=== PATIENT | female | born 1990 | race Caucasian/White ===

== ENCOUNTER 2017-09-18 10:38 | Emergency (ER) | payer OTHER ==
[2017-09-18] MEDS ORDERED: ONDANSETRON 4 MG/2 ML VIAL ONE (12:26)
[2017-09-18 12:31] LABS: Absolute Lymphocytes (CBC) 1.7 K/uL (0.7-4.9); Absolute Monocytes 0.6 K/uL (0.1-1.3); Absolute Neutrophil 5.1 K/uL (1.8-8.0); Basophils % 0.4 % (0-1.3); Eosinophils % 2.9 % (0-4.4); Hematocrit 40.5 % (36.0-45.0); Lymphocytes % 22.8 % (15.3-44.8); MPV 7.8 fL (7.6-11.3); Monocytes % 7.7 % (3.3-12.3)
[2017-09-18 12:41] LABS: Glomerular Filtration Rate > 60 mL/min (>60)
[2017-09-18 12:42] LABS: Bicarbonate 26 mEq/L (21-31); Glucose Level 88 mg/dL (65-120); Lipase 22 U/L (22-51); Potassium 3.7 mEq/L (3.6-5.0); Sodium Level 137 mEq/L (135-145)
[2017-09-18 12:49] LABS: ALT/SGPT 20 IU/L (10-60); AST/SGOT 22 IU/L (10-42); Albumin 4.6 g/dL (3.2-5.5); Alkaline Phosphatase 66 IU/L (42-121); BUN Blood Urea Nitrogen 16 mg/dL (6-20); Bilirubin Direct 0.1 mg/dL (0-0.2); Bilirubin Total 0.5 mg/dL (0.3-1.2); Glomerular Filtration Rate > 90 mL/min (=/>90); Protein, Total 7.8 g/dL (6.0-8.3)
--- NOTE | 2017-09-18 13:14 | ER ---
Nurse's Notes [facility] Name: Isi Maravilla Age: 27 yrs Sex: Female : 1990 Arrival Date: 09/18/2017 Time: 10:41 Bed 12 Private MD: Diagnosis: Vomiting;Viral gastroenteritis Presentation: 09/18 10:44 Presenting complaint: Patient states: "I woke up late for work and when I got there I lk1 started puking. I had to leave.". Transition of care: patient was not received from another setting of care. Onset of symptoms was September 18, 2017 at 10:00. Care prior to arrival: None. 10:44 Method Of Arrival: Ambulatory lk1 10:44 Acuity: JOEY 3 lk1 Triage Assessment: 10:46 General: Appears in no apparent distress. Behavior is calm, cooperative, appropriate lk1 for age. Pain: Denies pain. GI: Reports diarrhea, nausea, vomiting. 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 - Social history:: Smoking status: Patient uses tobacco products, smokes one-half pack cigarettes per day. - Family history:: not pertinent. - Hospitalizations: : No recent hospitalization is reported. Screenin:30 Abuse screen: Denies threats or abuse. Denies injuries from another. Nutritional aj1 screening: No deficits noted. Tuberculosis screening: No symptoms or risk factors identified. 13:40 Fall Risk None identified. iw Assessment: 12:30 General: Appears in no apparent distress. comfortable, Behavior is calm, cooperative, aj1 appropriate for age. Pain: Denies pain. Neuro: Level of Consciousness is awake, alert, obeys commands, Oriented to person, place, time, situation, Speech is normal, Facial symmetry appears normal. Cardiovascular: Patient's skin is warm and dry. Respiratory: Airway is patent Respiratory effort is even, unlabored, Respiratory pattern is regular, symmetrical. GI: Abdomen is flat, non-distended, Bowel sounds present X 4 quads. Abd is soft and non tender X 4 quads. Reports nausea, vomiting, Patient currently denies abdominal pain, diarrhea. : No signs and/or symptoms were reported regarding the genitourinary system. EENT: No signs and/or symptoms were reported regarding the EENT system. Derm: No signs and/or symptoms reported regarding the dermatologic system. Skin is pink, warm \\T\\ dry. normal. Musculoskeletal: No signs and/or symptoms reported regarding the musculoskeletal system. Circulation, motion, and sensation intact. 12:32 Reassessment: Patient is in room screaming "I hate hospitals, I want to leave!!!" aj1 Checked on patient, who says "I just don't want to be here, how much longer will this take?" Explained to patient that it typically takes 30 minutes to an hour to get lab results back and that results will affect whether further testing in indicated. Patient verbalized understanding, denies any further complaints. 13:00 Reassessment: Patient is standing outside door, asks how much longer until she is aj1 discharged. Instructed patient that labs may take up to an hour to complete and they were sent at around 12:30. Patient was asked if there was anything we could get her at this time, patient denies further needs walks back into her room and screams. Checked on patient who states "Sorry I'm just frustrated". Denies any further needs at this time. 13:10 Reassessment: Patient standing outside the door, states she wants to leave now. aj1 Notified Dr. Chicas who says he is ready to dc patient, notified pt that discharge paperwork is being completed and she will be discharged as soon as it is finished. Patient becomes irate, states "This is ridiculous, I've been here for over 4 hours and y'all haven't done anything!" Reviewed with patient care provider so far in her ER visit: labs, EKG, IV, medication, evaluation by physician. Patient remains agitated states "Well you don't have to keep me here, you could just call me with my results if you really wanted to. This is the slowest hospital I've ever been to. You should have gotten me out of here hours ago, you're just wasting my time" Reassured pt that will be discharging her in just a few minutes as soon as the physician finishes typing up discharge paperwork. Vital Signs: 10:46 BP 128 / 77; Pulse 80; Resp 14; Temp 98.2(TE); Pulse Ox 99% on R/A; Weight 74.84 kg lk1 (R); Height 5 ft. 5 in. (165.10 cm) (R); Pain 0/10; 10:46 Body Mass Index 27.46 (74.84 kg, 165.10 cm) lk1 ED Course: 10:41 Patient arrived in ED. rg4 10:45 Triage completed. lk1 10:48 Arm band placed on right wrist. lk1 11:46 Pablo Chicas MD is Attending Physician. rn 12:05 Coleen Charles, RN is Primary Nurse. aj1 12:30 Patient has correct armband on for positive identification. Call light in reach. aj1 12:30 No provider procedures requiring assistance completed. aj1 12:31 EKG done, by farm operations technical director. reviewed by Pablo Chicas MD. tc 13:40 IV discontinued, intact, bleeding controlled, No redness/swelling at site. Pressure iw dressing applied. Administered Medications: 12:29 Drug: Zofran 4 mg Route: IVP; Site: left antecubital; aj1 Outcome: 13:13 Discharge ordered by MD. rn 13:39 Discharged to home ambulatory. iw 13:39 Condition: good 13:39 Discharge instructions given to patient, Instructed on discharge instructions, follow up and referral plans. medication usage, Demonstrated understanding of instructions, follow-up care, medications, Prescriptions given X 1. 13:40 Patient left the ED. iw Signatures: Coleen Charles, CLAUDETTE RN aj1 Minoo Medley RN CLAUDETTE iw Pablo Chicas MD MD rn Callis, Tiffany, spotter driver EKG Taylor Sheth RN RN lk1 Francisca Thurston rg4 Corrections: (The following items were deleted from the chart) 13:24 13:00 Reassessment: Patient is standing outside door, asks how much longer until she is aj1 discharged. Instructed patient that labs may take up to an hour to complete and they were sent at around 12:30. Patient was asked if there was anything we could get her at this time, patient denies further needs walks back into her room and screams. Checked on patient who states "Sorry I'm just frustrated" aj1
--- NOTE | 2017-09-18 13:14 | EDPHYS ---
Physician Documentation [facility] Name: Isi Maravilla Age: 27 yrs Sex: Female : 1990 Arrival Date: 09/18/2017 Time: 10:41 Bed 12 Private MD: ED Physician Pablo Chicas HPI: 09/18 12:46 This 27 yrs old Female presents to ER via Ambulatory with complaints of rn Vomiting. 12:46 The patient presents to the emergency department with nausea, vomiting. Onset: The rn symptoms/episode began/occurred just prior to arrival. Possible causes: unknown. The symptoms are aggravated by nothing. The symptoms are alleviated by nothing. Severity of symptoms: At their worst the symptoms were mild in the emergency department the symptoms are unchanged. The patient has experienced similar episodes in the past. The patient has not recently seen a physician. Reports got to work, + threw up once, no blood, states diarrhea yesterday and today, no fever, not , no urinary symptoms. No abd pain/chest pain.. 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 - Social history:: Smoking status: Patient uses tobacco products, smokes one-half pack cigarettes per day. - Family history:: not pertinent. - Hospitalizations: : No recent hospitalization is reported. ROS: 12:46 Constitutional: Negative for fever, chills, and weight loss, Eyes: Negative for injury, rn pain, redness, and discharge, Neck: Negative for injury, pain, and swelling, Cardiovascular: Negative for chest pain, palpitations, and edema, Respiratory: Negative for shortness of breath, cough, wheezing, and pleuritic chest pain, Abdomen/GI: Negative for abdominal pain, constipation, MS/Extremity: Negative for injury and deformity, Skin: Negative for injury, rash, and discoloration, Neuro: Negative for headache, weakness, numbness, tingling, and seizure. Exam: 12:46 Constitutional: This is a well developed, well nourished patient who is awake, alert, rn and in no acute distress. Head/Face: Normocephalic, atraumatic. Eyes: Pupils equal round and reactive to light, extra-ocular motions intact. Lids and lashes normal. Conjunctiva and sclera are non-icteric and not injected. Cornea within normal limits. Periorbital areas with no swelling, redness, or edema. Cardiovascular: Regular rate and rhythm with a normal S1 and S2. No gallops, murmurs, or rubs. Normal PMI, no JVD. No pulse deficits. Respiratory: Lungs have equal breath sounds bilaterally, clear to auscultation and percussion. No rales, rhonchi or wheezes noted. No increased work of breathing, no retractions or nasal flaring. Abdomen/GI: Soft, non-tender, with normal bowel sounds. No distension or tympany. No guarding or rebound. No evidence of tenderness throughout. Back: No spinal tenderness. No costovertebral tenderness. Full range of motion. Skin: Warm, dry with normal turgor. Normal color with no rashes, no lesions, and no evidence of cellulitis. MS/ Extremity: Pulses equal, no cyanosis. Neurovascular intact. Full, normal range of motion. Equal circumference. Neuro: Awake and alert, GCS 15, oriented to person, place, time, and situation. Cranial nerves II-XII grossly intact. Motor strength 5/5 in all extremities. Sensory grossly intact. Cerebellar exam normal. Normal gait. Vital Signs: 10:46 BP 128 / 77; Pulse 80; Resp 14; Temp 98.2(TE); Pulse Ox 99% on R/A; Weight 74.84 kg lk1 (R); Height 5 ft. 5 in. (165.10 cm) (R); Pain 0/10; 10:46 Body Mass Index 27.46 (74.84 kg, 165.10 cm) lk1 MDM: 11:46 Patient medically screened. rn 13:12 Differential diagnosis: gastritis, viral gastroenteritis, gastroenteritis. Data rn reviewed: vital signs, nurses notes, lab test result(s), and as a result, I will discharge patient. Counseling: I had a detailed discussion with the patient and/or guardian regarding: the historical points, exam findings, and any diagnostic results supporting the discharge/admit diagnosis, lab results, the need for outpatient follow up, to return to the emergency department if symptoms worsen or persist or if there are any questions or concerns that arise at home. Special discussion: I discussed with the patient/guardian in detail that at this point there is no indication for admission to the hospital. It is understood, however, that if the symptoms persist or worsen the patient needs to return immediately for re-evaluation. ED course: Pt requesting to go home, states feels better, needs to leave, will dc home, UPT neg. . 09/18 11:47 Order name: Basic Metabolic Panel; Complete Time: 13:11 09/18 11:47 Order name: CBC with Diff; Complete Time: 13:11 rn 09/18 11:47 Order name: Creatinine for Radiology; Complete Time: 13:11 09/18 11:47 Order name: Hepatic Function; Complete Time: 13:11 09/18 11:47 Order name: Lipase; Complete Time: 13:11 09/18 11:47 Order name: Urine Microscopic Only 09/18 11:47 Order name: Urine Test (obtain specimen); Complete Time: 12:29 09/18 11:47 Order name: IV Saline Lock; Complete Time: 12:29 09/18 11:47 Order name: Labs collected and sent; Complete Time: 12:29 09/18 11:47 Order name: Urine Dipstick-Ancillary (obtain specimen); Complete Time: 12:30 rn 09/18 11:47 Order name: EKG; Complete Time: 11:48 09/18 12:35 Order name: Urine Dipstick--Ancillary (enter results) 09/18 12:35 Order name: Urine --Ancillary (enter results) 09/18 11:47 Order name: EKG - Nurse/Tech; Complete Time: 12:29 rn Administered Medications: 12:29 Drug: Zofran 4 mg Route: IVP; Site: left antecubital; aj1 Disposition: 09/18/17 13:13 Discharged to Home. Impression: Vomiting, Viral gastroenteritis. - Condition is Stable. - Discharge Instructions: Nausea and Vomiting, Viral Gastroenteritis, Viral Infections. - Prescriptions for Zofran ODT 4 mg Oral tablet,disintegrating - place 1 tablet by TRANSLINGUAL route every 8-10 hours As needed; 15 tablet. - Medication Reconciliation Form, Thank You Letter, Antibiotic Education, Prescription Opioid Use, Work release form form. - Follow up: Private Physician; When: As needed; Reason: Recheck today's complaints, Re-evaluation by your physician. - Problem is new. - Symptoms have improved. Signatures: Dispatcher [employer] Coleen Rosas RN RN aj1 Minoo Medley RN RN iw Nieto, Roman, MD MD rn Kluge, Leah, RN RN lk1
[2017-09-18 13:51] LABS: Urine Blood NEGATIVE (NEG); Urine Glucose NEGATIVE (NEG); Urine Protein NEGATIVE (NEG)
[2017-09-18 13:58] VITALS: BP 128/77; TEMP 98.2; O2SAT 99
[2017-09-18 13:58] LABS: Urine Amorphous Sediment 3+ /HPF (NONE SEEN); Urine Bacteria 20-50 /HPF (<20); Urine Culture Reflex Order REFLEXED; Urine RBC <5 /HPF (NONE SEEN)
--- NOTE | 2017-09-18 16:26 | EKG ---
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
== END 2017-09-18 13:40 | disposition home or self-care (01) ==
LOC: ER 10:38
DX: F17.210 Nicotine dependence, cigarettes, uncomplicated; A08.4 Viral intestinal infection, unspecified; Z88.0 Allergy status to penicillin
CPT/HCPCS: 36415; 80048; 80076; 81003; 81015; 81025; 83690; 85025; 87086; 87088; 93005; 96374; 99283; J2405

== ENCOUNTER 2018-01-12 21:55 | Emergency (ER) | payer OTHER ==
[2018-01-12 22:29] LABS: Urine Blood NEGATIVE (NEG); Urine Glucose NEGATIVE (NEG); Urine Protein 1+ (NEG); Urine Specific Gravity >1.030 (1.005-1.030)
[2018-01-12 23:05] LABS: Absolute Lymphocytes (CBC) 1.9 K/uL (0.7-4.9); Absolute Monocytes 0.5 K/uL (0.1-1.3); Absolute Neutrophil 3.6 K/uL (1.8-8.0); Basophils % 0.4 % (0-1.3); Eosinophils % 4.7 % (0-4.4); Hematocrit 38.7 % (36.0-45.0); Lymphocytes % 30.4 % (15.3-44.8); MCH 31.1 pg (27.0-35.0); MCV 89.6 fL (80-100); MPV 8.6 fL (7.6-11.3); RBC Red Blood Cell Count 4.31 M/uL (3.86-4.86)
[2018-01-12 23:17] LABS: ALT/SGPT 24 U/L (12-78); AST/SGOT 21 U/L (15-37); Albumin 4.1 g/dL (3.4-5.0); Alkaline Phosphatase 85 U/L (45-117); BUN Blood Urea Nitrogen 9 mg/dL (7-18); Bicarbonate 22 mmol/L (21-32); Bilirubin Direct < 0.1 mg/dL (0-0.2); Bilirubin Total 0.4 mg/dL (0.2-1.0); Glucose Level 113 mg/dL (74-106); Lipase 117 U/L (73-393); Potassium 3.4 mmol/L (3.5-5.1); Protein, Total 7.7 g/dL (6.4-8.2); Sodium Level 142 mmol/L (136-145)
--- NOTE | 2018-01-13 00:37 | ER ---
Nurse's Notes [facility] Name: Isi Maravilla Age: 27 yrs Sex: Female : 1990 Arrival Date: 01/12/2018 Time: 21:56 Bed 5 Private MD: Diagnosis: Unspecified abdominal pain Presentation: 01/12 22:11 Presenting complaint: Patient states: I had my period the whole month of November and the tl2 first two days of December but haven't had one since, I think I'm 20 days late. I've been having occasional lower abdominal pain. Denies NVD. Transition of care: patient was not received from another setting of care. Onset of symptoms was January 05, 2018. Risk Assessment: Do you want to hurt yourself or someone else? Patient reports no desire to harm self or others. Initial Sepsis Screen: Does the patient meet any 2 criteria? No. Patient's initial sepsis screen is negative. Does the patient have a suspected source of infection? No. Patient's initial sepsis screen is negative. Care prior to arrival: None. 22:11 Method Of Arrival: Ambulatory tl2 22:11 Acuity: JOEY 3 tl2 Triage Assessment: 22:13 General: Appears in no apparent distress. comfortable, Behavior is calm, cooperative, tl2 appropriate for age. Pain: Complains of pain in suprapubic area. GI: Reports lower abdominal pain, Patient currently denies diarrhea, nausea, vomiting. 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 - Social history:: Smoking status: Patient uses tobacco products, denies chronic smoking, but will smoke occasionally. - Ebola Screening: : No symptoms or risks identified at this time. Screenin:41 Abuse screen: Denies threats or abuse. Denies injuries from another. Nutritional ak1 screening: No deficits noted. Tuberculosis screening: No symptoms or risk factors identified. Fall Risk None identified. Assessment: 22:41 General: Appears in no apparent distress. Behavior is calm, cooperative. Pain: ak1 Complains of pain in abdomen and suprapubic area. Neuro: No deficits noted. Cardiovascular: No deficits noted. Respiratory: No deficits noted. GI: Bowel sounds present X 4 quads. Abd is soft and non tender X 4 quads. : No signs and/or symptoms were reported regarding the genitourinary system. EENT: No signs and/or symptoms were reported regarding the EENT system. Derm: No signs and/or symptoms reported regarding the dermatologic system. Musculoskeletal: No signs and/or symptoms reported regarding the musculoskeletal system. Vital Signs: 22:13 BP 125 / 85; Pulse 80; Resp 18; Temp 98.3(O); Pulse Ox 98% on R/A; Weight 72.57 kg; tl2 Height 5 ft. 5 in. (165.10 cm); Pain 6/10; 23:23 BP 124 / 77; Pulse 68; Resp 18; Temp 98.3; Pulse Ox 98% on R/A; ak1 22:13 Body Mass Index 26.63 (72.57 kg, 165.10 cm) tl2 ED Course: 21:56 Patient arrived in ED. es 22:02 Shelia Pham RN is Primary Nurse. ak1 22:03 Julio C Saldivar NP is PHCP. pm1 22:03 Ricco Candelario MD is Attending Physician. pm1 22:12 Triage completed. tl2 22:13 Arm band placed on right wrist. tl2 22:41 Patient has correct armband on for positive identification. Bed in low position. Call ak1 light in reach. Side rails up X 1. Adult w/ patient. Pulse ox on. NIBP on. 22:42 Inserted saline lock: 20 gauge in left antecubital area, using aseptic technique. ak1 ,using aseptic technique. placed by Maria T Vallejo RN Blood collected. 22:54 CT completed. Patient moved to CT via wheelchair. Patient moved back from CT. cw1 22:59 CT Stone Protocol In Process Unspecified. EDMS 01/13 00:58 No provider procedures requiring assistance completed. IV discontinued, intact, ak1 bleeding controlled, No redness/swelling at site. Pressure dressing applied. Administered Medications: No medications were administered Outcome: 00:37 Discharge ordered by . pm1 00:58 Discharged to home ambulatory, with family. ak1 00:58 Condition: good 00:58 Discharge instructions given to patient, family, Instructed on discharge instructions, follow up and referral plans. medication usage, Demonstrated understanding of instructions, follow-up care, medications, Prescriptions given X 1. 00:59 Patient left the ED. ak1 Signatures: Dispatcher [employer] Zainab Blanchard Crystal cw1 Shelia Pham RN RN ak1 Julio C Saldivar, SARABJIT PIT CREW SUPPORT WORKER pm1 Damaris Pop RN RN tl2
--- NOTE | 2018-01-13 00:38 | EDPHYS ---
Physician Documentation [facility] Name: Isi Maravilla Age: 27 yrs Sex: Female : 1990 Arrival Date: 01/12/2018 Time: 21:56 Bed 5 Private MD: ED Physician Ricco Candelario HPI: 01/12 22:30 This 27 yrs old Female presents to ER via Ambulatory with complaints of pm1 Abdominal Pain. 22:30 The patient presents with abdominal pain suprapubic. Onset: The symptoms/episode pm1 began/occurred today. The symptoms do not radiate. Associated signs and symptoms: Pertinent negatives: nausea, vomiting, and diarrhea, chest pain, shortness of breath. The symptoms are described as sharp. Modifying factors: The symptoms are alleviated by nothing, the symptoms are aggravated by nothing. Severity of pain: in the emergency department the pain is actually worse. The patient has experienced a previous episode, ovarian cysts. The patient has not recently seen a physician. 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 - Social history:: Smoking status: Patient uses tobacco products, denies chronic smoking, but will smoke occasionally. - Ebola Screening: : No symptoms or risks identified at this time. ROS: 22:30 Constitutional: Negative for fever, chills, and weight loss, Eyes: Negative for injury, pm1 pain, redness, and discharge, ENT: Negative for injury, pain, and discharge, Neck: Negative for injury, pain, and swelling, Cardiovascular: Negative for chest pain, palpitations, and edema, Respiratory: Negative for shortness of breath, cough, wheezing, and pleuritic chest pain. 22:30 Back: Negative for injury and pain, : Negative for injury, bleeding, discharge, and swelling, MS/Extremity: Negative for injury and deformity, Skin: Negative for injury, rash, and discoloration, Neuro: Negative for headache, weakness, numbness, tingling, and seizure. 22:30 Abdomen/GI: Positive for abdominal pain, of the suprapubic area, Negative for nausea, vomiting, and diarrhea. Exam: 22:30 Constitutional: This is a well developed, well nourished patient who is awake, alert, pm1 and in no acute distress. Head/Face: Normocephalic, atraumatic. Eyes: Pupils equal round and reactive to light, extra-ocular motions intact. Lids and lashes normal. Conjunctiva and sclera are non-icteric and not injected. Cornea within normal limits. Periorbital areas with no swelling, redness, or edema. ENT: Nares patent. No nasal discharge, no septal abnormalities noted. Tympanic membranes are normal and external auditory canals are clear. Oropharynx with no redness, swelling, or masses, exudates, or evidence of obstruction, uvula midline. Mucous membranes moist. Neck: Trachea midline, no thyromegaly or masses palpated, and no cervical lymphadenopathy. Supple, full range of motion without nuchal rigidity, or vertebral point tenderness. No Meningismus. Chest/axilla: Normal chest wall appearance and motion. Nontender with no deformity. No lesions are appreciated. Cardiovascular: Regular rate and rhythm with a normal S1 and S2. No gallops, murmurs, or rubs. Normal PMI, no JVD. No pulse deficits. Respiratory: Lungs have equal breath sounds bilaterally, clear to auscultation and percussion. No rales, rhonchi or wheezes noted. No increased work of breathing, no retractions or nasal flaring. Abdomen/GI: Soft, non-tender, with normal bowel sounds. No distension or tympany. No guarding or rebound. No evidence of tenderness throughout. 22:30 Skin: Warm, dry with normal turgor. Normal color with no rashes, no lesions, and no evidence of cellulitis. MS/ Extremity: Pulses equal, no cyanosis. Neurovascular intact. Full, normal range of motion. 22:30 Back: pain, is absent, ROM is normal spinal alignment noted, CVA tenderness, is noted on the left. 22:30 Neuro: Orientation: is normal, Motor: is normal, moves all fours, Sensation: is normal, no obvious gross deficits. Vital Signs: 22:13 BP 125 / 85; Pulse 80; Resp 18; Temp 98.3(O); Pulse Ox 98% on R/A; Weight 72.57 kg; tl2 Height 5 ft. 5 in. (165.10 cm); Pain 6/10; 23:23 BP 124 / 77; Pulse 68; Resp 18; Temp 98.3; Pulse Ox 98% on R/A; ak1 22:13 Body Mass Index 26.63 (72.57 kg, 165.10 cm) tl2 MDM: 22:06 Patient medically screened. pm1 01/13 00:36 Data reviewed: vital signs. Data interpreted: Pulse oximetry: on room air is 98 %. pm1 Interpretation: normal. Counseling: I had a detailed discussion with the patient and/or guardian regarding: the historical points, exam findings, and any diagnostic results supporting the discharge/admit diagnosis, lab results, radiology results, the need for outpatient follow up, to return to the emergency department if symptoms worsen or persist or if there are any questions or concerns that arise at home. 01/12 22:24 Order name: Basic Metabolic Panel; Complete Time: 23:37 pm1 01/12 22:24 Order name: CBC with Diff; Complete Time: 23:37 pm1 01/12 22:24 Order name: Hepatic Function; Complete Time: 23:37 pm1 01/12 22:24 Order name: Lipase; Complete Time: 23:37 pm1 01/12 22:27 Order name: Urine Dipstick--Ancillary (enter results) [facility] 01/12 22:27 Order name: Urine --Ancillary (enter results); Complete Time: 22:49 [facility] 01/12 22:07 Order name: Urine Dipstick-Ancillary (obtain specimen); Complete Time: 22:10 pm1 01/12 22:07 Order name: Urine Test (obtain specimen); Complete Time: 22:10 pm1 01/12 22:24 Order name: IV Saline Lock; Complete Time: 22:34 pm1 01/12 22:24 Order name: Labs collected and sent; Complete Time: 22:34 pm1 01/12 22:24 Order name: CT Stone Protocol pm01/12 22:28 Order name: Urine Dipstick-Ancillary; Complete Time: 22:49 EDMS Administered Medications: No medications were administered Disposition: 02:15 Co-signature as Attending Physician, Ricco Candelario MD. pkl Disposition: 01/13/18 00:37 Discharged to Home. Impression: Unspecified abdominal pain. - Condition is Stable. - Discharge Instructions: Abdominal Pain, Adult. - Prescriptions for Naprosyn 500 mg Oral Tablet - take 1 tablet by ORAL route 2 times per day take with food; 30 tablet. - Work release form, Medication Reconciliation Form, Thank You Letter form. - Follow up: Emergency Department; When: As needed; Reason: Worsening of condition. Follow up: Private Physician; When: 2 - 3 days; Reason: Recheck today's complaints, Continuance of care, Re-evaluation by your physician. - Problem is new. - Symptoms have improved. 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 Impression: Unspecified abdominal pain. ak1 Condition is Stable. Forms are Medication Reconciliation Form, Thank You Letter, Antibiotic Education, Prescription Opioid Use. Follow up: Emergency Department; When: As needed; Reason: Worsening of condition. Follow up: Private Physician; When: 2 - 3 days; Reason: Recheck today's complaints, Continuance of care, Re-evaluation by your physician. Problem is new. Symptoms have improved. pm1
[2018-01-13 01:03] VITALS: TEMP 98.3; O2SAT 98
[2018-01-13 01:04] VITALS: BP 124/77
--- NOTE | 2018-01-13 08:16 | RAD REPORT ---
EXAM DESCRIPTION: CT - Stone Protocol - 01/13/2018 4:12 am CLINICAL HISTORY: Abdominal pain, flank pain A preliminary written report was provided at the time of the study, and the report was reviewed prio r to final dictation. COMPARISON: CT pelvis September 2011 TECHNIQUE: Axial 5 mm thick images were obtained without oral or IV contrast. The [id number] span s the entirety of the system including uppermost abdomen and lung bases. All CT scans are performed using dose optimization technique as appropriate and may include automated exposure control or mA/KV adjustment according to patient size. FINDINGS: No hydronephrosis is present and no obstructing ureteral calculi. No suspicious renal mass es. Isodense masses and pyelonephritis are not excluded on a stone protocol CT scan. Urinary bladder is contracted. No bladder calculi seen. Punctate 1 mm or less right mid calyx calcification. Uterus and ovaries show no suspicious findings. Imaged portions of the liver, spleen and pancreas show no suspicious findings on non-contrast imaging . Gallbladder is mostly contracted. No biliary tree dilatation. Gallstones can be occult. No signific ant adrenal finding. No suspicious bowel findings. Appendix is identified and normal. Patient has a few small predominatel y right-sided mesenteric lymph nodes. No acute GI process otherwise suspected. No mass or bulky lymphadenopathy. No omental thickening. Patient has a very small incidental umbilica l hernia. No free air, free fluid or inflammatory stranding. No acute bone findings. 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 No spondylolisthesis. L5 body i s partially sacralized as a normal variant. IMPRESSION: No hydronephrosis, obstructing calculus or acute finding seen. Patient has a punctate 1 mm or less calyx calcification mid right kidney. Isodense masses and pyelonephritis are not excluded on stone protocol technique. No acute abdominal or pelvic finding seen. Nonacute findings detailed in the body of the report.
== END 2018-01-13 00:59 | disposition home or self-care (01) ==
LOC: ER 21:55
DX: R10.9 Unspecified abdominal pain (principal); Z72.0 Tobacco use; Z88.0 Allergy status to penicillin
CPT/HCPCS: 36415; 74176; 76377; 80048; 80076; 81003; 81025; 83690; 85025; 99284